=== PATIENT | male | born 2000 | race Caucasian/White ===

== ENCOUNTER 2024-05-10 22:01 | Emergency (ER) | payer MEDICAID, OTHER ==
[~2024-05-10] VITALS: Ht 182.9 cm; Wt 86.4 kg
[2024-05-10] MEDS: bacitracin 15gm ointment TP ONE (22:25)
[2024-05-10] MEDS ORDERED: HYDR-3965 PO (23:15)
[2024-05-10] MEDS: LIDOcaine 1% W/epiNEPHrine 1:100,000 20ml vial IJ ONE (23:22)
[2024-05-10 23:39] VITALS: BP 111/66; PULSE 64; RESP 19; TEMP 98; O2SAT 100
== END 2024-05-10 23:42 | disposition home or self-care (01) ==
LOC: ER 22:01
DX: S61.012A Laceration without foreign body of left thumb without damage to nail, initial encounter (principal); W26.0XXA Contact with knife, initial encounter; Y93.89 Activity, other specified; Y92.89 Other specified places as the place of occurrence of the external cause; Y99.8 Other external cause status
CPT/HCPCS: 12002; 99283